=== PATIENT | female | born 1965 ===

== ENCOUNTER 2020-05-23 05:21 | Day surgery (SDC) | payer OTHER ==
[~2020-05-23 05:21] MED LIST: CLONAZEPAM2 M1 PO; DICLOFENAC-MIS1 EAC1 PO; FLUOXETINE HCL40 MG PO; GABAPENTIN800 M1 PO; LINZESS145 MCG PO; METFORMIN HCL500 M3 PO; RESTORIL30 M1 PO; ZANAFLEX4 M1 PO; ZESTRIL20 MG PO
[2020-05-23] MEDS ORDERED: PERCOCET 5-3251 EACH PO (08:17)
[2020-05-23] MEDS ORDERED: RECTICARE30 GM TOP (08:18)
== END 2020-05-23 18:00 | disposition home or self-care (01) ==
LOC: CIR.AMB 05:21
PROVIDERS: ATTEND Surgery
DX: K60.1 Chronic anal fissure (principal); Z20.828 Contact with and (suspected) exposure to other viral communicable diseases

== ENCOUNTER 2021-11-20 18:40 | Emergency (ER) | payer OTHER ==
[~2021-11-20] VITALS: Ht 157.5 cm; Wt 90.7 kg
[~2021-11-20 18:40] MED LIST changes: +PERCOCET 5-3251 EACH PO; +RECTICARE30 GM TOP
== END 2021-11-21 11:49 | disposition home or self-care (01) ==
LOC: ER 18:40
DX: K62.89 Other specified diseases of anus and rectum (principal); K60.1 Chronic anal fissure; I10 Essential (primary) hypertension; E11.9 Type 2 diabetes mellitus without complications; Z20.822 Contact with and (suspected) exposure to COVID-19